=== PATIENT | female | born 1935 | race Caucasian/White ===

== ENCOUNTER 2017-08-05 11:30 | Inpatient (IN) | payer OTHER ==
[~2017-08-05] VITALS: Ht 157.5 cm; Wt 72.6 kg
[~2017-08-05 11:30] MED LIST: CLONAZEPAM1 MG PO; DOCUSATE SODIU100 MG PO; PERCOCET 5/3251 TAB PO
[2017-08-05] MEDS ORDERED: SYNTHROID50 MCG PO (13:02)
[2017-08-05] MEDS ORDERED: LISINOPRIL20 MG PO (13:02)
[2017-08-13] MEDS ORDERED: PERCOCET 5-3251 EACH PO (11:57)
[2017-08-13] MEDS ORDERED: DOCUSATE SODIU100 MG PO (11:57)
[2017-08-13] MEDS ORDERED: GABAPENTIN800 MG PO (11:57)
[2017-08-13] MEDS ORDERED: CLONAZEPAM1 MG PO (11:57)
[2017-08-13] MEDS ORDERED: AMOX-CLAV 875-1 EACH PO (11:57)
== END 2017-08-14 14:51 | disposition home or self-care (01) | DRG 460 ==
LOC: PED 08-13 04:45 → O/R 08-13 04:45 → SURH 08-13 10:00 → PED 08-13 13:24
PROVIDERS: Orthopaedic Surgery Orthopaedic Surgery of the Spine
PROC: 0SG10AJ Fusion of 2 or more Lumbar Vertebral Joints with Interbody Fusion Device, Posterior Approach, Anterior Column, Open Approach (ICD-10-PCS; 2017-08-13)
PROC: 0ST20ZZ Resection of Lumbar Vertebral Disc, Open Approach (ICD-10-PCS; 2017-08-13)
PROC: 07DS3ZZ Extraction of Vertebral Bone Marrow, Percutaneous Approach (ICD-10-PCS; 2017-08-13)
PROC: 0SG10A0 Fusion of 2 or more Lumbar Vertebral Joints with Interbody Fusion Device, Anterior Approach, Anterior Column, Open Approach (ICD-10-PCS; principal; 2017-08-13 10:00)
DX: M47.26 Other spondylosis with radiculopathy, lumbar region (principal); M47.12 Other spondylosis with myelopathy, cervical region; M51.16 Intervertebral disc disorders with radiculopathy, lumbar region; M41.86 Other forms of scoliosis, lumbar region; I10 Essential (primary) hypertension; E03.8 Other specified hypothyroidism; E11.9 Type 2 diabetes mellitus without complications